=== PATIENT | female | born 1955 | race Caucasian/White ===

== ENCOUNTER 2018-04-02 11:42 | Day surgery (SDC) | payer BC ==
[2018-04-01 16:53] VITALS: BMI 32.5
[~2018-04-02 11:42] MED LIST: Cyclopentolate 1% Opth Drop 2 ML BOT FS SCH; Fluorouracil 100 MG, Enoxaparin Sodium 25 MG, EPINEPHrine 0.3 MG in Ophthalmic Irrigati... IVPB SCH; Lidocaine 1% PF 5 ML VIAL ONE; Ondansetron HCl/PF 4 MG/2 ML Vial ONE; PHENYLEPHRINE-NS 100 MCG/ML 10 ML SYRINGE ONE; PROPOFOL 200 MG/20 ML VIAL ONE; Phenylephrine 2.5% Ophth Soln 5 ML BOT FS SCH; diphenhydrAMINE 50 MG/ML VIAL ONE; ePHEDrine/0.9% NaCl/PF SYRINGE 50 mg/10 ml ONE
[2018-04-02] MEDS ORDERED: Cyclopentolate 1% Opth Drop 2 ML BOT ONE (13:02)
[2018-04-02] MEDS ORDERED: Phenylephrine 2.5% Ophth Soln 5 ML BOT ONE (13:03)
[2018-04-02] MEDS ORDERED: Lidocaine 2% 10 ML INJ ONE (14:06)
[2018-04-02] MEDS ORDERED: Midazolam HCl 2 mg/2 ml Vial ONE (14:06)
[2018-04-02] MEDS ORDERED: Fentanyl 100 MCG/2 ML VIAL ONE (14:06)
[2018-04-02] MEDS ORDERED: PROPOFOL 20 ML ONE (14:06)
[2018-04-02] MEDS ORDERED: Ondansetron HCl/PF 4 MG/2 ML Vial ONE (14:06)
--- NOTE | 2018-04-02 17:59 | OP ---
DATE OF PROCEDURE: 04/02/2018 PREOPERATIVE DIAGNOSIS: Rhegmatogenous retinal detachment, left eye. x POSTOPERATIVE DIAGNOSIS: Rhegmatogenous retinal detachment, left eye. PROCEDURE: Pars plana vitrectomy and retinal detachment repair, left eye. SURGEON: Mauro Marques M.D. ANESTHESIA: General endotracheal anesthesia. PROCEDURE IN DETAIL: The patient was identified in the preoperative holding area. Appropriate infor med consent for the planned surgical procedure on the left eye had been obtained. The patient was tr ansported to the operative suite. Appropriate cardiopulmonary monitoring established. General endot jeanne anesthesia was initiated. Local anesthesia was initiated with a retrobulbar block. The [facility] ent was prepped and draped in the usual sterile manner for ophthalmic surgery on the left eye. Lid s peculum was placed in the left eye. The 25-gauge trocars were placed through the conjunctiva and scl era supratemporally, inferotemporally and supranasally. Infusion line was placed inferotemporally. Light pipe and vitreous cutter were inserted into the eye. Core vitrectomy was performed. Star fold was noted on the macula and inferiorly. Vitreous was trimmed back 360 degrees using wide field view ing system. Complete air fluid exchange was performed with fluid drained through the anterior break. Laser was placed around the anterior break, distortion of the macula still noted. The inferior sta r fold had resolved. A 28% sulfur hexafluoride gas was infused into the eye. Superotemporal sclerot sharla was suture closed with 6-0 plain gut suture. Retrobulbar Kenalog and subconjunctival Ancef were placed. Atropine and antibiotic ointment were placed and the eye was patched and shielded. The [facility] ent was taken the postoperative recovery unit in good condition having suffered no immediate perioper ative complications. DISCHARGE INSTRUCTIONS: The patient was instructed to keep patch and shield on, position right side down and follow up in the morning with Dr. Marques.
== END 2018-04-02 17:40 | disposition home or self-care (01) ==
LOC: EDBD → SDC 11:42
PROVIDERS: ATTEND Ophthalmology Retina Specialist
PROC: 08T53ZZ Resection of Left Vitreous, Percutaneous Approach (ICD-10-PCS; principal; 2018-04-02)
DX: H33.012 Retinal detachment with single break, left eye (principal)
CPT/HCPCS: 36416; 67025; J0171; J1200; J1650; J2001; J2250; J2405; J2704; J3010; J9190

== ENCOUNTER 2020-09-28 08:02 | Outpatient (CLI) | payer OTHER | END 2020-09-28 08:03 | disposition home or self-care (01) | LOC: DTY/OP 08:02 | PROVIDERS: ATTEND Specialist | DX: E11.65 Type 2 diabetes mellitus with hyperglycemia (principal); E03.9 Hypothyroidism, unspecified; E78.5 Hyperlipidemia, unspecified; I10 Essential (primary) hypertension | CPT/HCPCS: 97802 ==

== ENCOUNTER 2022-05-21 09:35 | Outpatient (CLI) | payer MEDICARE | END 2022-05-21 09:36 | disposition home or self-care (01) | LOC: DTY/OP 09:35 | PROVIDERS: ATTEND Student in an Organized Health Care Education/Training Program | DX: E11.9 Type 2 diabetes mellitus without complications (principal) | CPT/HCPCS: 97802 ==